=== PATIENT | male | born 1950 | race Caucasian/White ===

== ENCOUNTER → 2018-03-19 | Outpatient (CLI) | payer MEDICARE ==
[~2018-03-19] MED LIST: ALLO100T PO; ALLO300T2 PO; AMLO5TAB2 PO; ASCO500T PO; FLUT1INH INH; GEMF600T PO; GUAI1TAB PO; LEVO.1 PO; LEVO100T5 PO; LEVO150T7 PO; LOSA50TA PO; MEDI220T PO; MONT10TA4 PO; MUCI600T PO; NAPR220T95 PO; VITA1000 PO; VITA500C PO; VITATAB25 PO; ZOLP1TAB32 PO
[2018-03-19 09:05] LABS: PROTHROMBIN TIME - PATIENT 10.4 SEC (9.8-11.6)
[2018-03-19 09:20] LABS: AUTOMATED NEUTROPHIL # 5.8 TH/MM3 (1.8-7.7); BASOPHIL # 0.1 TH/MM3 (0-0.2); BASOPHIL % 1.2 % (0.0-2.0); EOSINOPHIL # 0.7 TH/MM3 (0-0.4); EOSINOPHIL % 8.2 % (0.0-4.0); HEMATOCRIT 45.5 % (39.0-51.0); HEMOGLOBIN 15.7 GM/DL (13.0-17.0); LYMPH % 12.2 % (9.0-44.0); MEAN CELL VOLUME 89.8 FL (80.0-100.0); MEAN CORPUSCULAR HEMOGLOBIN 30.9 PG (27.0-34.0); MEAN CORPUSCULAR HGB CONC 34.5 % (32.0-36.0); MEAN PLATELET VOLUME 9.8 FL (7.0-11.0); MONO % 7.3 % (0.0-8.0); MONOCYTE # 0.6 TH/MM3 (0-0.9); NEUT % 71.1 % (16.0-70.0); PLATELET COUNT 211 TH/MM3 (150-450); RED BLOOD COUNT 5.06 MIL/MM3 (4.50-5.90); RED CELL DISTRIBUTION WIDTH 14.2 % (11.6-17.2); WHITE BLOOD COUNT 8.1 TH/MM3 (4.0-11.0)
--- NOTE | 2018-03-19 10:16 | RADRPT ---
EXAM DATE: 03/19/2018 9:56 AM EDT AGE/SEX: 68 years / Male INDICATIONS: Evaluate for pneumonia, pneumothorax and communicable diseases. Pre-op lumbar laminecto my. CLINICAL DATA: This is the patient's initial encounter. Patient reports that signs and symptoms have been present for 1 day and indicates a pain score of 0/10. MEDICAL/SURGICAL HISTORY: None. None. COMPARISON: No prior exams available for comparison. FINDINGS: PA and lateral views of the chest demonstrate the lungs to be symmetrically aerated without evidence of mass, infiltrate or effusion. The cardiomediastinal contours are unremarkable. Osseous structures are intact. CONCLUSION: Negative for acute process Electronically signed by: Tyler Leach MD 03/19/2018 10:15 AM EDT
[2018-03-19 10:37] LABS: ALBUMIN 4.2 GM/DL (3.4-5.0); ALT (GPT) 28 U/L (12-78); AST (GOT) 17 U/L (15-37); BICARBONATE 25.8 MEQ/L (21.0-32.0); BLOOD UREA NITROGEN 25 MG/DL (7-18); CALCIUM 8.9 MG/DL (8.5-10.1); CHLORIDE 108 MEQ/L (98-107); GLOMERULAR FILTRATION RATE 46 ML/MIN (>89); GLUCOSE,FASTING 91 MG/DL (74-99); SODIUM (NA) 143 MEQ/L (136-145)
[2018-03-19 10:40] LABS: ALKALINE PHOSPHATASE 120 U/L (45-117); TOTAL BILIRUBIN ADULT 0.7 MG/DL (0.2-1.0); TOTAL PROTEIN 7.5 GM/DL (6.4-8.2)
[2018-03-19 11:01] LABS: BILIRUBIN, URINE NEG (NEG); BLOOD, URINE NEG (NEG); GLUCOSE,URINE NEG (NEG); KETONE, URINE NEG (NEG); MUCUS URINE FEW /lpf (OCC); NITRITE,URINE NEG (NEG); URINE COLOR YELLOW (YELLW/STRAW); URINE LEUKOCYTE ESTERASE NEG (NEG)
--- NOTE | 2018-03-19 20:11 | EKG ---
Date Performed: 03/19/2018 Time Performed: 08:49:32 PTAGE: 68 years EKG: Sinus rhythm WITH OCCASIONAL VENTRICULAR PREMATURE COMPLEXES BORDERLINE ECG Since the PREVIOUS TRACING , no significant change noted DOCTOR: Alejandro Fountain Interpretating Date/Time 03/19/2018 20:10:30
== END ==
LOC: CPRE 08:26
PROVIDERS: ATTEND Neurological Surgery
DX: Z01.812 Encounter for preprocedural laboratory examination (principal); Z01.810 Encounter for preprocedural cardiovascular examination; Z01.811 Encounter for preprocedural respiratory examination; M43.10 Spondylolisthesis, site unspecified; M51.36 Other intervertebral disc degeneration, lumbar region; R94.31 Abnormal electrocardiogram [ECG] [EKG]
CPT/HCPCS: 36415; 71046; 80053; 81001; 85025; 85610; 85730; 87640; 87641; 93005

== ENCOUNTER 2018-04-01 06:39 | Inpatient (IN) ==
[2018-04-01] MEDS ORDERED: Thrombin Topical Soln 5,000 UNIT Vial TOPICAL ONE (07:00)
[2018-04-01] MEDS ORDERED: Bupivacaine/Epinephrine 0.5% Inj 50 ML Vial ONE (07:00)
[2018-04-01] MEDS ORDERED: Gelatin Size 100 Topical Foam ONE (07:01)
[2018-04-01] MEDS ORDERED: Metoprolol Tartrate 25 MG Tablet PO SCH (07:15)
[2018-04-01] MEDS ORDERED: Chlorhexidine Gluconate 2% 1 Pack (2 Cloths) TOPICAL SCH (07:15)
[2018-04-01] MEDS ORDERED: Vancomycin Inj 1 GM/200 ML PIGGYBACK IV.SIG SCH (08:00)
[2018-04-01] MEDS ORDERED: Sodium Chlor 0.9% Inj 500 ML IV.SIG SCH (08:00)
[2018-04-01] MEDS: ceFAZolin 2 GM Premix Inj 2 GM/50 ML PIGGYBACK IV.SIG ONE ×2 (11:33→11:49)
[2018-04-01] MEDS ORDERED: Sodium Chlor 0.9% Inj 500 ML IV.SIG ONE (12:00)
[2018-04-01] MEDS ORDERED: Phenylephrine/NS 1000 MCG/10ML Syringe IV.PUSH ONE (12:00)
[2018-04-01] MEDS ORDERED: Lidocaine PF 1% Inj 5 ML Syringe INFILTRATN ONE (12:00)
[2018-04-01] MEDS ORDERED: ceFAZolin 2 GM Premix Inj 2 GM/50 ML PIGGYBACK IV.SIG ONE (13:13)
[2018-04-01 13:54] LABS: ABG Base Excess -3.3 mmol/L (-2-2); ABG PCO2 35 mmHg (38-42); ABG PO2 244 mmHG (61-120)
--- NOTE | 2018-04-01 14:20 | XR ---
EXAM DATE: 04/01/2018 2:16 PM EDT AGE/SEX: 68 years / Male INDICATIONS: Post-op L3-L4, L4-L5 posterior lumbar fusion. CLINICAL DATA: This is the patient's initial encounter. Patient reports that signs and symptoms have been present for 1 day and indicates a pain score of Nonresponsive. MEDICAL/SURGICAL HISTORY: Non-responsive. Non-responsive. COMPARISON: No prior exams available for comparison. FINDINGS: AP and lateral intraoperative images of the lower lumbar spine show bilateral transpedicular fixation with intervertebral disc prostheses from L3 through L5. Hardware appears to be intact. No significan t listhesis. CONCLUSION: Appropriate postoperative appearance of the lower lumbar spine with bilateral transpedicular fixation from L3 through L5. Electronically signed by: Az Ta MD 04/01/2018 2:19 PM EDT
[2018-04-01] MEDS ORDERED: fentaNYL Citrate Inj 100 MCG/2 ML Ampul ONE (14:26)
[2018-04-01] MEDS ORDERED: Morphine Inj 4 MG/ML Vial ONE (14:27)
[2018-04-01] MEDS ORDERED: Bisacodyl 10 MG Supp RECTAL PRN (14:57)
[2018-04-01] MEDS ORDERED: guaiFENesin 600 MG ER Tablet PO PRN (15:10)
[2018-04-01] MEDS ORDERED: Naloxone Inj 0.4 MG/ML Vial IV.PUSH PRN ×2 (15:35→16:50)
[2018-04-01 15:54] LABS: Baso # (Auto) 0.1 th/mm3 (0.0-0.2); Baso % (Auto) 0.2 % (0.0-2.0); Eos # (Auto) 0.2 th/mm3 (0.0-0.4); Eos % (Auto) 1.1 % (0.0-4.0); Hematocrit 39.8 % (39.0-51.0); Hemoglobin 13.5 gm/dL (13.0-17.0); Lymph # (Auto) 0.7 th/mm3 (1.0-4.8); Lymph % (Auto) 3.3 % (9.0-44.0); Mean Corpuscular HGB Conc 33.8 % (32.0-36.0); Mean Corpuscular Hemoglobin 30.1 pg (27.0-34.0); Mean Corpuscular Volume 88.9 fL (80.0-100.0); Mean Platelet Volume 9.8 fL (7.0-11.0); Mono # (Auto) 0.3 th/mm3 (0.0-0.9); Mono % (Auto) 1.6 % (0.0-8.0); Neut # (Auto) 19.9 th/mm3 (1.8-7.7); Neut % (Auto) 93.8 % (16.0-70.0); Platelet Count 201 th/mm3 (150-450); Red Blood Count 4.48 mil/mm3 (4.50-5.90); White Blood Count 21.3 th/mm3 (4.0-11.0)
[2018-04-01 16:08] LABS: Calcium 7.9 mg/dL (8.5-10.1); Carbon Dioxide 21.5 meq/L (21.0-32.0); Potassium 3.8 meq/L (3.5-5.1)
[2018-04-01] MEDS ORDERED: HYDROmorphone PCA Inj 6 MG/30 ML PCA.VIAL PCA PRN (17:00)
--- NOTE | 2018-04-01 17:54 | P.OP ---
Date of procedure: 04/01/18 Procedure: L3-4, L4-L5 laminectomy, interbody arthrodhesis using PEEK cage and autologous bone graft, L3-4, L4-L5 instrumental fixation using transpedicular screws and rods, L3-4, L4-L5 posterolateral fusion using autologous bone graft and demineralized bone matrix. Microsurgical dissection Anesthesia: ROCIO Surgeon: Chetan Bryant MD Casket Assembler Metal: Clementine Whatley Pathology: none sent Operation and Findings: INDICATIONS FOR THE SURGICAL PROCEDURE Mr veras is a 68 year-old male who presented with intractable mechanical back pain and charan evidence of L4 and L5 lower extremity radiculopathy. He has failed maximum nonsurgical management including multiple modalities of conservative treatment as well as pain management interventions by an interventional pain specialist. A surgical decompression and arthrodhesis were indicated as a last resort. The [id number] details of the procedure, indications, alternatives, risks and potential complications were fully discussed with the patient. The patient fully understood. All the questions were answered. No guarantees were given. He voiced requesting the procedure and provided informed consents. He was offered the alternative of delaying the procedure and continuing with nonsurgical management. DETAILS OF THE SURGICAL PROCEDURE Prior to the procedure, the procedure, risks, and potential complications revisited with the patient. Placement of electrodes for intraoperative neurophysiological monitoring was completed. The patient was taken to the operative room, and following induction of general anesthesia, endotracheal intubation was performed. A Starkey catheter, bilateral WADE hose and sequential compression devices were placed and kept throughout the procedure. The patient was positioned prone, over a Carlos Manuel table over a bolsters. All pressure in the preoperative surgical holding room points were carefully padded with eggcrate and gel mattress. The eyes were tapped shut after ointment was applied by the anesthesiologist to prevent corneal abrasion. A Hiral hugger was placed over the expossed lower body to maintain control of the core body temperature. The electrophysiological team placed the needles and electrodes in their proper location and baseline SSEP's and motor evoked potentials were registered. The entrance to each pedicles was marked using a C arm. The lumbar region was prepped and draped in the usual sterile fashion. The surgical procedure was performed in several steps as follow: SURGICAL APPROACH Once the patient was positioned, a localizing cross-table lateral and AP x-ray was performed with a C-arm. Two paramedian small incisions were outlined on the skin approximately 3cm from the midline. The skin incisions were made with a # 10 blade. Small bleeders were controlled with the cautery. The dissection was then carried out into deeper planes and through the thoracolumbar fascia with a Bovie. The intermuscular septum was identified and the muscles were blunted dissected along the septum. The facets and transverse process of L3-4, L4,5 were exposed and the proper anatomical landmarks were identidied. A microsurgical self-retaining retractor was placed on the incision, and a localizing lateralizing cross-table x-ray was performed with an instrument underneath a lamina of the lumbar spine. INSTRUMENTAL FIXATION At this point in the procedure, placement of bilateral transpedicular screws was necessary for stabilization of the spine. Initially, the entry point for the screw was selected anatomically at the junction of the facet, with the transverse process, and the pars interarticularis at L3-4, L4,5. This was iniciated with a Giamshetti needle, followed by the use of K wire. A tap was used to create the threads for the screws. Finally bilateral transpedicular screws were carefully placed bilaterally at L3, L4, and L5 under fluoroscopic visualization. An appropriate purchase was achieved with all screws. The position of each screw was assessed anatomically with an AP, lateral, oblique Xrays. An intraoperative scan view of the spine was then performed using the iso -centric c-arm. Each screw was then assessed electrophysiologically stimulating each screw with a nerve stimulator. SURGICAL DECOMPRESSION There was significant mass effect with compression of the neural structures. In order to relieve neural compression, it was necessary to perform a decompressive laminectomy, with decompression of the spinal canal and bilateral lateral recesses. Note that the scope of such decompression was significantly more extensive than the minimal exposure necessary to perform an interbody fusion, as there was extreme facet arthropathy with severe degeneration of the disk spaces and stenosis cause by the hyperthrophic joint facets. At this point of the procedure the operative microscope was draped in the usual sterile fashion and brought to the field. The rest of the surgical procedure was performed using microdissection technique with the exception of the closure. Under the operating microscope, a decompressive laminectomy was carried out at on the right side L3-4, L4,5 as follow: The laminae, base of the spinous processes and facets were carefully drilled exposing the ligamentum flavum. The facets were abnormal with severe spondylolisthesis and gross mechanical instability. A large disk protusion was compressing the neural structures and exiting nerve roots. A near complete facetectomy was necessary resulting in further mechanical instability. The ligamentum flavum appeared hypertrophic, resulting on mass effect on the dorsal surface of the neural structures. The superior free border of the ligamentum flavum was elevated with a ligament dissector and the ligamentum flavum was removed with a 3 and 4 mm Kerrison forceps. The ligament was very adherent to the dural sac and during the dissection, ans extreme care was taken during the dissection. The exiting nerve roots were identified, and a wide foraminotomy was performed with a Kerrison in their trajectory towards the neural foramen. Epidural veins located laterally to the dural sac were coagulated with the bipolar cautery, and then incised using microscissors. Gentle medial retraction of the dural sac allowed me to expose the disc space for the discectomy. Upon completion of the discectomy, an excellent decompression of the neural structures was achieved. INTERBODY ARTHRODHESIS In order to correct the narrowing of the disk space and maintain distraction of the space, and to achieve a solid interbody fusion, it was necessary the insertion of an interbody device into the disk space. Otherwise, the disk space would collapse, compromising the result of the surgical procedure. At this point of the procedure, the annulus fibrosus of the disk was carefully coagulated with a bipolar cautery and incised using an 11 bladed knife. Then, a microdiscectomy was carried out in a standard fashion using a combination of straight and up-biting pituitary forceps. A reverse angle curette was applied underneath the posterior longitudinal ligament, and used to push the disk fragments into the disk space, so they can be safely removed with a pituitary forceps. Once the discectomy was completed, it was necessary to decorticate the endplates, in order to eliminate the cartilaginous endplate and to expose healthy bone appropriate to perform the interbody fusion. The endplates at L3-4 , L4,5 were then thoroughly decorticated using increasing size bone mau and ring curets, eliminating the cartilaginous fragments from both, the superior and inferior endplates. A disk space distractor was applied to the pedicle screws and gentle distraction was applied. This maneuver was assisted by the use of a disk distractor. Increased motility was noted at the disk, which was consistent with instability due to facet arthropathy. Once a thorough preparation of the disk space was achieved, the disk space was irrigated with antibiotic solution, and the interbody fusion was performed by carefully impacting PPEK cages filled with autologous iliac crest bone graft. The use of several shoe impactors with different angulation, allowed me for an excellent, proper position of the interbody cages L3-4 and L4,5. A solid position of the cage with good purchase was achieved. The position of the cages were assessed anatomically with a probe and radiologically with the C-arm. POSTEROLATERAL FUSION The posterolateral fusion is a critical component to the procedure, to prevent future fatigue and failure of the instrumental fixation. Initially, the transverse processes of the vertebral bodies, lateral surface of the facets and the lateral gutters of the spine were carefully cleaned, eliminating all soft tissue and muscle attachments. The area was then irrigated with a large amount of antibiotic solution. Subsequently, the transverse processes, lateral surface of the facets, and lateral gutters of the spine were thoroughly decorticated using the TPS drill with a 5mm cutting stephie, exposing cancellous bone, in preparation for the posterolateral fusion. The incision was again irrigated with antibiotic solution. Then, the posterolateral fusion was then performed by carefully packing the lateral gutters of the spine at L3-4, L4,5 with autologous bone combined with demineralized bone matrix. I packed as much bone as possible. COMPLETION OF THE INSTRUMENTATION AND CLOSURE The rods were brought to the field, applied to all the screws, and the screw caps were sequentially applied. Compression was performed between the pedicle screws, and final tightening of the screws was completed using a torque wrench. The incision was again thoroughly irrigated with several liters of antibiotic solution, and hemostasis secured with the bipolar cautery. A Valsalva Maneuver performed by the anesthesiologist failed to show any evidence of cerebrospinal fluid leak or bleeding. A 7 mm Carlos Manuel-Connor drain was left in the epidural space and externalized through a separate stab incision. The incision was then closed in planes. 0 Vicryl was used in an interrupted fashion to close the thoracolumbar fascia and the superficial fascia. The subcutaneous tissue was then approximated using 3-0 Vicryl in an interrupted fashion. Special care was taken to avoid space. The skin was then closed with 4-0 Vicryl in a running, subcuticular fashion. Dermabond was applied to the skin. Each plane of closure was irrigated with antibiotic solution. At the end of the procedure the sponge, needle and instrument counts were all correct. Estimated blood loss was 350-400 cc. No blood transfusion was given. The entire procedure was performed using continuous electrophysiological monitoring of the somatosensorial evoked potentials and EMG. The patient received prophylactic antibiotics. The patient was then extubated and transferred to the recovery room in stable condition.
[2018-04-01] MEDS: Montelukast 10 MG Tablet PO SCH (22:17)
[2018-04-01] MEDS: Senna/Docusate Sodium 8.6/50 MG Tablet PO SCH (22:17)
[2018-04-01] MEDS: ceFAZolin 2 GM Premix Inj 2 GM/50 ML PIGGYBACK IV.SIG SCH (22:21)
[2018-04-01] MEDS: Sod Chloride 0.9% Inj 1,000 ML IV.SIG SCH (22:21)
[2018-04-02] MEDS: Levothyroxine 100 MCG Tablet PO SCH (05:29)
[2018-04-02] MEDS: ceFAZolin 2 GM Premix Inj 2 GM/50 ML PIGGYBACK IV.SIG SCH ×2 (05:29→13:00)
[2018-04-02] MEDS: Sod Chloride 0.9% Inj 1,000 ML IV.SIG SCH ×2 (06:09→14:49)
[2018-04-02 06:22] LABS: Baso % (Auto) 0.3 % (0.0-2.0); Eos # (Auto) 0.1 th/mm3 (0.0-0.4); Eos % (Auto) 1.1 % (0.0-4.0); Hematocrit 34.7 % (39.0-51.0); Hemoglobin 11.9 gm/dL (13.0-17.0); Lymph % (Auto) 8.1 % (9.0-44.0); Mean Corpuscular HGB Conc 34.3 % (32.0-36.0); Mean Corpuscular Hemoglobin 30.4 pg (27.0-34.0); Mean Corpuscular Volume 88.8 fL (80.0-100.0); Mean Platelet Volume 9.5 fL (7.0-11.0); Mono # (Auto) 0.9 th/mm3 (0.0-0.9); Mono % (Auto) 7.2 % (0.0-8.0); Neut # (Auto) 9.9 th/mm3 (1.8-7.7); Neut % (Auto) 83.3 % (16.0-70.0); Platelet Count 178 th/mm3 (150-450); Red Blood Count 3.91 mil/mm3 (4.50-5.90); Red Cell Distribution Width 13.7 % (11.6-17.2); White Blood Count 11.9 th/mm3 (4.0-11.0)
[2018-04-02 06:39] LABS: Calcium 7.9 mg/dL (8.5-10.1); Carbon Dioxide 25.7 meq/L (21.0-32.0); Potassium 3.6 meq/L (3.5-5.1)
[2018-04-02] MEDS: HYDROmorphone PCA Inj 6 MG/30 ML PCA.VIAL PCA PRN (08:39)
[2018-04-02] MEDS: Allopurinol 100 MG Tablet PO SCH (08:44)
[2018-04-02] MEDS: Senna/Docusate Sodium 8.6/50 MG Tablet PO SCH ×2 (08:44→21:53)
[2018-04-02] MEDS: Gemfibrozil 600 MG Tablet PO SCH ×3 (08:44→19:42)
[2018-04-02] MEDS: amLODIPine 5 MG Tablet PO SCH (08:45)
[2018-04-02] MEDS: Ascorbic Acid 500 MG Tablet PO SCH (08:45)
--- NOTE | 2018-04-02 10:28 | P.CON ---
History of Present Illness Service: [facility] Consult date: 04/01/18 Requesting Physician: Chetan Bryant Reason for Consult: Assist with Medical Management Primary Care Provider: Tyshawn Larkin MD Chief Complaint: Weakness History of Present Illness: Patient is a 68-year-old male with primary medical history of hypothyroidism, HTN, arthritis, back pain with radiculopathy, gout, renal insufficiency, HLD who came in for elective surgery with Dr. Bryant secondary to back pain with radiculopathy. Patient is status post L3-4, L4-L5 laminectomy, interbody arthrodhesis using PEEK cage and autologous bone graft, L3-4, L4-L5 instrumental fixation using transpedicular screws and rods, L3-4, L4-L5 posterolateral fusion using autologous bone graft and demineralized bone matrix. Microsurgical dissection 04/01/18. Reports he is doing okay except for feeling that he is going to have a gout flareup on his left foot. He forgets if he took his allopurinol this morning. As per nursing allopurinol has been giving. Discussed with patient will restart all his medications from home. All his previous surgeries and medical histories provided. States he feels pain RLE due to sciatica. Denies SOB/ dyspnea. Denies chest pain, palpitations , headaches, dizziness. Denies fevers, chills, n/v/d. Denies dysuria. Review of Systems All other systems reviewed negative except as stated in [facility] - History History Provided By: Patient - Medical History Medical History: Medical History (Last Updated 04/02/18 @ 10:20 by JOSEP Dutton) H/O thyroidectomy (Acute) Anemia Arthritis Asthma Back pain COPD (chronic obstructive pulmonary disease) Cataract GERD (gastroesophageal reflux disease) Gout High cholesterol Hypertension Hypothyroidism Myocardial infarction Neck pain Osteoporosis Prostate cancer Radiation exposure Renal disease Scoliosis Sleep apnea Thyroid cancer Zffzc-Lfhiwvjyw-Vesxu (WPW) syndrome - Surgical History Surgical History: Surgical History (Last Reviewed 03/19/18 @ 09:20 by Blessing Mendez RN) History of cholecystectomy History of total right knee replacement - Tobacco History Second Hand Smoke Exposure: No Smoking Status: Never smoker - Alcohol History How Often Do You Have a Drink Containing Alcohol: Monthly or less - Substance Use History Substance History: No History of Abuse - Travel History Recent Travel in the [facility] Within the Last 8 Weeks: No Recent Travel Out of the Country Within the Last 8 Weeks: No Medications and Allergies Active Medications: Active Medications Hydrocodone Bitart/Acetaminophen ([place] 10/325) 1 tab PO Q4H PRN PRN Reason: Pain Scale 1 To 5 Al Hydroxide/Mg Hydroxide (Milk Of Mor Arguetaq) 30 ml PO Q12H PRN PRN Reason: Mild Constipation Albuterol (Albuterol Neb (Prn)) 2.5 mg NEB Q4HR NEB PRN PRN Reason: WHEEZING Allopurinol (Zyloprim) 200 mg PO DAILY [facility] Last Admin: 04/02/18 08:44 Dose: 200 mg Amlodipine Besylate (Norvasc) 5 mg PO DAILY [facility] Last Admin: 04/02/18 08:45 Dose: 5 mg Ascorbic Acid (Vitamin C) 500 mg PO DAILY [facility] Last Admin: 04/02/18 08:45 Dose: 500 mg Bisacodyl (Dulcolax Supp) 10 mg RECTAL DAILY PRN PRN Reason: SEVERE CONSITIPATION Chlorhexidine Gluconate (Chlorhexidine 2% Cloth) 3 pack [employer] EXECUTIVE DIRECTOR [facility] Stop: 04/04/18 07:07 Last Admin: 04/01/18 06:45 Dose: 3 pack Clonidine HCl (Catapres) 0.1 mg PO Q6H PRN PRN Reason: SYS BP GREATER THAN 170 MMHG Cyclobenzaprine HCl (Flexeril) 10 mg PO Q8H PRN PRN Reason: MUSCLE SPASM Gemfibrozil (Lopid) 600 mg PO BIDAC [facility] Last Admin: 04/02/18 08:46 Dose: 600 mg Guaifenesin (Mucinex Er) 600 mg PO Q12H PRN PRN Reason: COUGH Lactated Ringer's (Lr 1000 Ml Inj) 1,000 mls @ 30 mls/hr IV.SIG .Q24H [facility] Stop: 04/04/18 07:07 Last Admin: 04/02/18 08:46 Dose: Not Given Sodium Chloride (Ns Inj) 500 mls @ 30 mls/hr IV.SIG .Q10H [facility] Stop: 04/04/18 07:07 Vancomycin/Sodium Chloride (Vancomycin Inj) 1 gm in 200 mls @ 200 mls/hr IV.SIG [employer] EXECUTIVE DIRECTOR [facility] Stop: 04/04/18 07:38 Cefazolin Sodium/Dextrose (Ancef 2 Gm Premix Inj) 2 gm in 50 mls @ 100 mls/hr IV.SIG Q8H [facility] Stop: 04/02/18 13:29 Last Admin: 04/02/18 05:29 Dose: 100 mls/hr Sodium Chloride (Ns Inj) 1,000 mls @ 100 mls/hr IV.SIG .Q10H [facility] Last Admin: 04/02/18 06:09 Dose: 100 mls/hr Hydromorphone/Sodium Chloride (Dilaudid Parks Recreation Director Inj) 6 mg in 30 mls @ 0 mls/hr IRRIGATION PUMP INSTALLER UNSCH PRN PRN Reason: per IRRIGATION PUMP INSTALLER parameters Last Admin: 04/02/18 08:39 Dose: 0 mls/hr Lactulose (Lactulose Liq) 30 ml PO DAILY PRN PRN Reason: SEVERE CONSITIPATION Levothyroxine Sodium (Synthroid) 150 mcg PO [place]@0600 [facility] Levothyroxine Sodium (Synthroid) 100 mcg PO MoTuWeThFrSa@0600 [facility] Last Admin: 04/02/18 05:29 Dose: 100 mcg Losartan Potassium (Cozaar) 50 mg PO DAILY [facility] Last Admin: 04/02/18 08:44 Dose: 50 mg Metoprolol Tartrate (Lopressor) 25 mg PO [employer] EXECUTIVE DIRECTOR [facility] Stop: 04/04/18 07:07 Miscellaneous Information (Mis Nursing Information) 1 each OTHER UNSCH PRN PRN Reason: SEE LABEL COMMENTS Stop: 04/02/18 14:55 Montelukast Sodium (Singulair) 10 mg PO QPM [facility] Last Admin: 04/01/18 22:17 Dose: 10 mg Naloxone HCl (Narcan Inj) 0.4 mg IV.PUSH PRN PRN PRN Reason: SEE LABEL COMMENTS Ondansetron HCl (Zofran Odt) 4 mg PO Q6H PRN PRN Reason: NAUSEA OR VOMITING Pantoprazole Sodium (Protonix) 40 mg PO DAILY [facility] Last Admin: 04/02/18 08:44 Dose: 40 mg Povidone Iodine (Betadine 5% Antisepsis Kit) 1 applicatio EACH [employer] EXECUTIVE DIRECTOR [facility] Stop: 04/04/18 07:07 Last Admin: 04/01/18 08:25 Dose: 1 applicatio Senna/Docusate Sodium (Barbi-Colace) 1 tab PO BID [facility] Last Admin: 04/02/18 08:44 Dose: 1 tab Sennosides (Senokot) 17.2 mg PO Q12H PRN PRN Reason: Moderate Constipation Sodium Chloride (Ns Flush) 2 ml IV.FLUSH UNSCH PRN PRN Reason: FLUSH AFTER USING IV ACCESS Vitamin D (Vitamin D3) 1,000 unit PO DAILY [facility] Last Admin: 04/02/18 08:44 Dose: 1,000 unit Allergies Allergy/AdvReac Type Severity Reaction Status Date / Time latex Allergy Mild Rash Verified 04/01/18 08:04 digoxin AdvReac Unknown PT HAS Verified 04/01/18 08:04 BOWLING PARKINSON WHITE SYNDROME Home Medications Medication Instructions Recorded Confirmed Type allopurinol 200 mg PO DAILY 03/19/18 04/01/18 History amlodipine 5 mg PO DAILY 03/19/18 04/01/18 History ascorbic acid (vitamin C) 500 mg PO DAILY 03/19/18 History cholecalciferol (vitamin D3) 1,000 unit PO DAILY 03/19/18 04/01/18 History gemfibrozil 600 mg PO BIDAC 03/19/18 04/01/18 History guaifenesin 600 mg PO Q12H PRN 03/19/18 History levothyroxine 100 mcg PO MOTUWETHFRSA 03/19/18 04/01/18 History levothyroxine 150 mcg PO [place] 03/19/18 04/01/18 History montelukast 10 mg PO QPM 03/19/18 History naproxen sodium 220 mg PO Q12H PRN 03/19/18 04/01/18 History losartan 50 mg PO DAILY 04/01/18 04/01/18 History Physical Exam Vital signs: Vital Signs 04/01/18 14:20 04/01/18 14:45 04/01/18 15:00 Temperature 98.3 F Pulse Rate 77 81 73 Respiratory Rate 14 14 14 Blood Pressure 125/61 154/74 H 150/70 H Pulse Oximetry 99 98 95 04/01/18 15:15 04/01/18 15:30 04/01/18 15:45 Temperature Pulse Rate 75 77 73 Respiratory Rate 18 17 17 Blood Pressure 152/74 H 148/73 H 142/70 H Pulse Oximetry 95 94 L 97 04/01/18 16:15 04/01/18 16:45 04/01/18 17:42 Temperature 97.6 F 98.6 F Pulse Rate 73 72 71 Respiratory Rate 18 16 18 Blood Pressure 144/77 H 148/78 H 163/77 H Pulse Oximetry 97 97 99 04/01/18 20:45 04/02/18 00:00 04/02/18 04:50 Temperature 98.8 F 98.1 F 98 F Pulse Rate 69 65 68 Respiratory Rate 21 20 18 Blood Pressure 149/68 H 135/67 129/69 Pulse Oximetry 99 99 99 04/02/18 08:07 Temperature 98.6 F Pulse Rate 84 Respiratory Rate 16 Blood Pressure 155/71 H Pulse Oximetry 98 Intake & Output 04/01/18 04/02/18 04/02/18 18:59 06:59 18:59 Intake Total 2650 / 2650 2930 / 2930 50 / 50 Output Total 700 / 700 850 / 850 Balance 1949 / 1949 2079 / 2079 50 / 50 Weight 87.1 kg 87 kg Intake: IV 50 / 50 50 / 50 50 / 50 Ancef 2 GM Premix Inj 2 gm In 50 / 50 50 / 50 50 ml @ 100 mls/hr IV.SIG Q8H [place] Rx#:[id number] Oral 1880 / 1880 Anesthesia Amount 2600 / 2600 Other 1000 / 1000 Output: Estimated Blood Loss 400 / 400 Urine Amount (Catheter) 300 / 300 750 / 750 Indwelling Urethral Catheter 300 / 300 750 / 750 Wound Drainage 100 / 100 # 1 Lower Back 100 / 100 Other: Other Intake Source Saline Solution # Bowel Movements 0 Weight On Admission 87.1 kg Narrative: GENERAL: This is a well-nourished, well-developed patient, in no apparent distress. SKIN: Warm and dry. HEENT: Normocephalic. Pupils equal round and reactive. Nose without bleeding. Airway patent. NECK: Trachea midline. CARDIOVASCULAR: Regular rate and rhythm without murmurs, gallops, or rubs. RESPIRATORY: Clear to auscultation. Breath sounds equal bilaterally. No wheezes , rales, or rhonchi. GASTROINTESTINAL: Abdomen soft, non-tender, nondistended. Bowel Sounds normoactive x4. MUSCULOSKELETAL: Extremities without clubbing, cyanosis, or edema. NEUROLOGICAL: Awake and alert. No focal neuro deficit. Moves all extremities, RLE weak planta and dorsi flexion. Normal speech. - Urinary Catheter Management Indwelling Urethral Catheter Cath placed during this visit: yes Reason for continuing: Other continuation reason Insertion date: 04/01/18 Insertion time: 09:20 Assessment and Plan - Assessment (1) S/P laminectomy Code(s): Z98.890 - Other specified postprocedural states Status: Acute - Plan Patient is a 68-year-old male with primary medical history of hypothyroidism, HTN, arthritis, back pain with radiculopathy, gout, renal insufficiency, HLD who came in for elective surgery with Dr. Bryant secondary to back pain with radiculopathy. Status post laminectomy L3-L4, L4-L5 by Dr. Bryant Hx back pain with radiculopathy, failed conservative treatment -Pain management with bowel regimen -PT eval and treat HTN HLD Hx Guy Parkinson -Continue amlodipine, losartan -Continue gemfibrozil -Monitor trend CKD ST 3 -Avoid nephrotoxins -Monitor renal indicis Hypothyroidism -Continue home Synthroid Gout -Continue allopurinol COPD not in exacerbation -Duo nebs as needed DVT prop SCDs, teds Code Status: Full Code Discussed Condition With: Patient, nursing Discharge Planning: DC home when cleared by attending physician
--- NOTE | 2018-04-02 16:20 | P.PNNS ---
Subjective Interval history: 04/02: POD 1 L3-4, L4-L5 laminectomy, interbody arthrodhesis using PEEK cage and autologous bone graft, L3-4, L4-L5 instrumental fixation using transpedicular screws and rods, L3-4, L4-L5 posterolateral fusion using autologous bone graft and demineralized bone matrix. Microsurgical dissection pt doing well surgical pain controlled with CARE COORDINATION MANAGER, increased pain with movement. reports radicular pain feels better. no new neurological complaints. Physical Exam Vital signs: Vital Signs 04/01/18 16:45 04/01/18 17:42 04/01/18 20:45 Temperature 97.6 F 98.6 F 98.8 F Pulse Rate 72 71 69 Respiratory Rate 16 18 21 Blood Pressure 148/78 H 163/77 H 149/68 H Pulse Oximetry 97 99 99 04/02/18 00:00 04/02/18 04:50 04/02/18 08:07 Temperature 98.1 F 98 F 98.6 F Pulse Rate 65 68 84 Respiratory Rate 20 18 16 Blood Pressure 135/67 129/69 155/71 H Pulse Oximetry 99 99 98 04/02/18 12:00 04/02/18 16:11 Temperature 99.8 F H Pulse Rate 84 Respiratory Rate 18 18 Blood Pressure 125/61 118/59 L Pulse Oximetry 95 Intake & Output 04/01/18 04/02/18 04/02/18 18:59 06:59 18:59 Intake Total 2650 / 2650 2930 / 2930 580 / 580 Output Total 700 / 700 850 / 850 1000 / 1000 Balance 1950 / 1950 2080 / 2080 -420 / -420 Weight 87.1 kg 87 kg Intake: IV 50 / 50 50 / 50 100 / 100 Ancef 2 GM Premix Inj 2 gm In 50 / 50 50 / 50 50 / 50 50 ml @ 100 mls/hr IV.SIG Q8H [place] Rx#:[id number] Oral 1880 / 1880 480 / 480 Anesthesia Amount 2600 / 2600 Other 1000 / 1000 Output: Urine 1000 / 1000 Estimated Blood Loss 400 / 400 Urine Amount (Catheter) 300 / 300 750 / 750 Indwelling Urethral Catheter 300 / 300 750 / 750 Wound Drainage 100 / 100 # 1 Lower Back 100 / 100 Other: Other Intake Source Saline Solution # Bowel Movements 0 Weight On Admission 87.1 kg - Constitutional no acute distress - Routine HEENT Exam Head: Present: normocephalic Eye: Present: EOMI, PERRL - Routine Neck Exam Present: supple - Routine Neurological Exam Present: alert, oriented X3 - Routine Psychiatric Exam Present: normal affect - Urinary Catheter Management Indwelling Urethral Catheter Cath placed during this visit: yes, but has since been removed by the nurse Reason for continuing: Continue criteria not met Insertion date: 04/01/18 Insertion time: 09:20 Removal date: 04/02/18 Removal time: 13:00 Assessment and Plan - Assessment (1) S/P lumbar fusion Code(s): Z98.1 - Arthrodesis status Status: Acute - Plan cont post-op pain control with CARE COORDINATION MANAGER, TLSO when out of bed, Physical Therapy Protonix for gi prophylaxis SCDs and TEDs for dvt prophylaxis appreciate medical assistance anticipate discharge in 1-2 days when pain controlled
--- NOTE | 2018-04-02 16:22 | P.DCO ---
- Physical Therapy Order: Improve ambulation - Home Health Nursing Order: Medical education, Signs/symptoms of disease process, Medication education-adverse effect, Wound care and dressing changes (see discharge wound care orders), Nursing assessment with vital signs - Certification I have seen patient Austin Mathis on 04/02/18. My clinical findings support the need for the requested home health care services because: Deconditioned with increased weakness, High risk of falls I certify that my clinical findings support that this patient is homebound because: Post-op weakness
[2018-04-02] MEDS: Montelukast 10 MG Tablet PO SCH (19:41)
[2018-04-03] MEDS: Sod Chloride 0.9% Inj 1,000 ML IV.SIG SCH ×3 (00:38→08:05)
[2018-04-03] MEDS: HYDROmorphone PCA Inj 6 MG/30 ML PCA.VIAL PCA PRN (07:59)
[2018-04-03] MEDS: Gemfibrozil 600 MG Tablet PO SCH ×2 (08:02→16:03)
[2018-04-03] MEDS: Senna/Docusate Sodium 8.6/50 MG Tablet PO SCH (08:03)
[2018-04-03] MEDS: Ascorbic Acid 500 MG Tablet PO SCH (08:03)
[2018-04-03] MEDS: Allopurinol 100 MG Tablet PO SCH (08:04)
[2018-04-03] MEDS: amLODIPine 5 MG Tablet PO SCH (08:05)
--- NOTE | 2018-04-03 09:23 | P.PN ---
Subjective Interval history: Follow-up visit gout, HTN, HLD, status post L3-L4, L4-L5 laminectomy. Patient seen and examined today. Reports he is doing well. States that he has muscle tightness on the right side, feeling of sciatica, states he is unable to lay on his side due to this. Otherwise, denies fevers, chills, nausea, vomiting. Denies chest pain, palpitations, shortness of breath or dyspnea. Denies dysuria. Physical Exam Vital signs: Vital Signs 04/02/18 12:00 04/02/18 16:11 04/02/18 20:00 Temperature 99.8 F H 100.2 F H Pulse Rate 84 103 H Respiratory Rate 18 18 18 Blood Pressure 125/61 118/59 L 100/56 L Pulse Oximetry 95 95 04/02/18 21:53 04/03/18 00:00 04/03/18 02:39 Temperature 98.6 F Pulse Rate 87 Respiratory Rate 20 18 16 Blood Pressure 130/57 L Pulse Oximetry 95 04/03/18 04:00 04/03/18 05:56 04/03/18 08:13 Temperature 98.8 F 98.2 F Pulse Rate 79 92 H Respiratory Rate 18 16 16 Blood Pressure 144/65 H 168/78 H Pulse Oximetry 94 L 94 L Intake & Output 04/02/18 04/03/18 04/03/18 18:59 06:59 18:59 Intake Total 1580 / 1580 1000 / 1000 Output Total 1000 / 1000 725 / 725 90 / 90 Balance 580 / 580 -725 / -725 910 / 910 Weight 91.5 kg Intake: IV 1100 / 1100 1000 / 1000 NS Inj 1,000 ML @ 100 mls/hr IV 1000 / 1000 1000 / 1000 .SIG .Q10H [place] Rx#:[id number] Ancef 2 GM Premix Inj 2 gm In 50 / 50 50 ml @ 100 mls/hr IV.SIG Q8H [place] Rx#:[id number] Oral 480 / 480 Output: Urine 1000 / 1000 725 / 725 Wound Drainage 90 / 90 # 1 Lower Back 90 / 90 Other: # Voids 2 Narrative: GENERAL: This is a well-nourished, well-developed patient, in no apparent distress. SKIN: Warm and dry. HEENT: Normocephalic. Pupils equal round and reactive. Nose without bleeding. Airway patent. NECK: Trachea midline. CARDIOVASCULAR: Regular rate and rhythm without murmurs, gallops, or rubs. RESPIRATORY: Clear to auscultation. Breath sounds equal bilaterally. No wheezes , rales, or rhonchi. GASTROINTESTINAL: Abdomen soft, non-tender, nondistended. Bowel Sounds normoactive x4. MUSCULOSKELETAL: Extremities without clubbing, cyanosis, or edema. NEUROLOGICAL: Awake and alert. No focal neuro deficit. Moves all extremities, RLE weak plantar and dorsi flexion, improved. Normal speech. - Urinary Catheter Management Indwelling Urethral Catheter Cath placed during this visit: yes, but has since been removed by the nurse Reason for continuing: Continue criteria not met Insertion date: 04/01/18 Insertion time: 09:20 Removal date: 04/02/18 Removal time: 13:00 Results - Labs CBC & Chem 7: 04/03/18 08:48 04/02/18 05:58 - Procedures Status post laminectomy L3-L4, L4-L5 by Dr. Bryant Assessment and Plan - Assessment (1) S/P laminectomy Code(s): Z98.890 - Other specified postprocedural states Status: Acute - Plan Patient is a 68-year-old male with primary medical history of hypothyroidism, HTN, arthritis, back pain with radiculopathy, gout, renal insufficiency, HLD who came in for elective surgery with Dr. Bryant secondary to back pain with radiculopathy. Status post laminectomy L3-L4, L4-L5 by Dr. Bryant Hx back pain with radiculopathy, failed conservative treatment -Pain management with bowel regimen -PT eval and treat -Flexeril for sciatica pain HTN HLD Hx Guy Parkinson -Continue amlodipine, losartan -Continue gemfibrozil -Monitor trend CKD ST 3 -Avoid nephrotoxins -Monitor renal indicis Hypothyroidism -Continue home Synthroid Gout -Continue allopurinol COPD not in exacerbation -Duo nebs as needed DVT prop SCDs, teds Discharge Planning: DC home when cleared by attending physician
[2018-04-03 10:25] LABS: Baso # (Auto) 0.1 th/mm3 (0.0-0.2); Baso % (Auto) 0.4 % (0.0-2.0); Eos # (Auto) 0.7 th/mm3 (0.0-0.4); Eos % (Auto) 5.7 % (0.0-4.0); Hematocrit 31.8 % (39.0-51.0); Lymph # (Auto) 0.6 th/mm3 (1.0-4.8); Lymph % (Auto) 5.4 % (9.0-44.0); Mean Corpuscular HGB Conc 34.5 % (32.0-36.0); Mean Corpuscular Hemoglobin 30.6 pg (27.0-34.0); Mean Corpuscular Volume 88.7 fL (80.0-100.0); Mono # (Auto) 0.8 th/mm3 (0.0-0.9); Mono % (Auto) 6.9 % (0.0-8.0); Neut # (Auto) 9.8 th/mm3 (1.8-7.7); Neut % (Auto) 81.6 % (16.0-70.0); Platelet Count 139 th/mm3 (150-450); Red Blood Count 3.58 mil/mm3 (4.50-5.90); Red Cell Distribution Width 13.8 % (11.6-17.2)
[2018-04-03 10:55] LABS: Calcium 7.9 mg/dL (8.5-10.1); Carbon Dioxide 24.4 meq/L (21.0-32.0); Potassium 3.6 meq/L (3.5-5.1)
--- NOTE | 2018-04-03 14:03 | P.PNNS ---
Subjective Interval history: 04/03: reports of moderate lumbar pain and right sciatica pain today. feels not ready for discharge home. Physical Exam Vital signs: Vital Signs 04/02/18 16:11 04/02/18 20:00 04/02/18 21:53 Temperature 100.2 F H Pulse Rate 103 H Respiratory Rate 18 18 20 Blood Pressure 118/59 L 100/56 L Pulse Oximetry 95 95 04/03/18 00:00 04/03/18 02:39 04/03/18 04:00 Temperature 98.6 F 98.8 F Pulse Rate 87 79 Respiratory Rate 18 16 18 Blood Pressure 130/57 L 144/65 H Pulse Oximetry 95 94 L 04/03/18 05:56 04/03/18 08:13 04/03/18 09:45 Temperature 98.2 F Pulse Rate 92 H Respiratory Rate 16 16 16 Blood Pressure 168/78 H Pulse Oximetry 94 L 04/03/18 09:46 04/03/18 10:43 Temperature Pulse Rate Respiratory Rate 16 16 Blood Pressure Pulse Oximetry Intake & Output 04/02/18 04/03/18 04/03/18 18:59 06:59 18:59 Intake Total 1580 / 1580 1000 / 1000 Output Total 1000 / 1000 725 / 725 90 / 90 Balance 580 / 580 -725 / -725 910 / 910 Weight 91.5 kg Intake: IV 1100 / 1100 1000 / 1000 NS Inj 1,000 ML @ 100 mls/hr IV 1000 / 1000 1000 / 1000 .SIG .Q10H [place] Rx#:[id number] Ancef 2 GM Premix Inj 2 gm In 50 / 50 50 ml @ 100 mls/hr IV.SIG Q8H [place] Rx#:[id number] Oral 480 / 480 Output: Urine 1000 / 1000 725 / 725 Wound Drainage 90 / 90 # 1 Lower Back 90 / 90 Other: # Voids 2 Narrative: GENERAL: Sitting up in chair with TLSO brace, No acute distress SKIN: Warm and dry. HEAD: Normocephalic. EYES: No scleral icterus. No injection or drainage. NECK: Supple, trachea midline. MUSCULOSKELETAL: No cyanosis, or edema. Moves major muscle groups of LE's well b /l. BACK: ANDRE drain with 90 cc output overnight. - Urinary Catheter Management Indwelling Urethral Catheter Cath placed during this visit: yes, but has since been removed by the nurse Reason for continuing: Continue criteria not met Insertion date: 04/01/18 Insertion time: 09:20 Removal date: 04/02/18 Removal time: 13:00 Assessment and Plan - Assessment (1) S/P lumbar fusion Code(s): Z98.1 - Arthrodesis status Status: Acute - Plan cont post-op pain control with RESTAURANT WORKER, + oral pain medications prn, TLSO when out of bed, Physical Therapy Protonix for gi prophylaxis SCDs and TEDs for dvt prophylaxis appreciate medical assistance cont ANDRE draining today, to dc tomorrow
[2018-04-03] MEDS: Montelukast 10 MG Tablet PO SCH (18:17)
[2018-04-04] MEDS: Senna/Docusate Sodium 8.6/50 MG Tablet PO SCH ×3 (00:45→20:44)
[2018-04-04] MEDS: Levothyroxine 100 MCG Tablet PO SCH (05:45)
[2018-04-04] MEDS: Sod Chloride 0.9% Inj 1,000 ML IV.SIG SCH ×3 (05:52→15:24)
[2018-04-04] MEDS: Gemfibrozil 600 MG Tablet PO SCH ×2 (09:14→17:12)
[2018-04-04] MEDS: Allopurinol 100 MG Tablet PO SCH (09:15)
[2018-04-04] MEDS: Ascorbic Acid 500 MG Tablet PO SCH (09:15)
[2018-04-04] MEDS: amLODIPine 5 MG Tablet PO SCH (09:15)
[2018-04-04] MEDS: HYDROmorphone PCA Inj 6 MG/30 ML PCA.VIAL PCA PRN (11:07)
--- NOTE | 2018-04-04 12:54 | P.PNIM ---
Subjective Interval history: The patient was sitting in a chair. He said his pain was controlled. He worked with physical therapy earlier. He thought that he could go to rehab prior to going home. Discussed with his family at the bedside. The patient has not had a bowel movement in several days. Physical Exam Vital signs: Vital Signs 04/03/18 16:00 04/03/18 16:02 04/03/18 16:03 Temperature 98.2 F Pulse Rate 93 H Respiratory Rate 16 16 18 Blood Pressure 143/70 H Pulse Oximetry 97 04/03/18 16:04 04/03/18 18:13 04/03/18 20:00 Temperature 99.3 F Pulse Rate 94 H Respiratory Rate 16 18 19 Blood Pressure 165/74 H Pulse Oximetry 04/04/18 00:00 04/04/18 00:19 04/04/18 04:00 Temperature 97.9 F 97.5 F L Pulse Rate 91 H 90 Respiratory Rate 18 19 20 Blood Pressure 156/71 H 182/82 H Pulse Oximetry 95 98 04/04/18 05:44 04/04/18 05:53 04/04/18 08:00 Temperature 98.1 F Pulse Rate 84 Respiratory Rate 19 19 18 Blood Pressure 189/83 H Pulse Oximetry 96 04/04/18 11:51 04/04/18 12:00 Temperature 100.0 F H Pulse Rate 105 H Respiratory Rate 16 17 Blood Pressure 127/65 Pulse Oximetry 95 Intake & Output 04/03/18 04/04/18 04/04/18 18:59 06:59 18:59 Intake Total 1999 Output Total 790 / 790 890 / 890 Balance 1210 / 1210 -890 / -890 Weight 87.2 kg Intake: IV 1999 NS Inj 1,000 ML @ 100 mls/hr IV 1999 .SIG .Q10H [place] Rx#:[id number] Output: Urine 700 / 700 800 / 800 Wound Drainage # 1 Lower Back Narrative: GENERAL: This is a well-nourished, well-developed patient, in no apparent distress. SKIN: Warm and dry. HEENT: Normocephalic. Pupils equal round and reactive. Nose without bleeding. Airway patent. NECK: Trachea midline. CARDIOVASCULAR: Regular rate and rhythm without murmurs, gallops, or rubs. RESPIRATORY: Clear to auscultation. Breath sounds equal bilaterally. No wheezes , rales, or rhonchi. GASTROINTESTINAL: Abdomen soft, non-tender, nondistended. Bowel Sounds normoactive x4. MUSCULOSKELETAL: Brace in place. Extremities without clubbing, cyanosis, or edema. NEUROLOGICAL: Awake and alert. No focal neuro deficit. Moves all extremities, RLE weak plantar and dorsi flexion, improved. Normal speech. - Urinary Catheter Management Indwelling Urethral Catheter Cath placed during this visit: yes, but has since been removed by the nurse Reason for continuing: Continue criteria not met Insertion date: 04/01/18 Insertion time: 09:20 Removal date: 04/02/18 Removal time: 13:00 Results - Labs CBC & Chem 7: 04/03/18 08:48 04/03/18 08:48 - Procedures Status post laminectomy L3-L4, L4-L5 by Dr. Bryant Assessment and Plan - Assessment (1) S/P laminectomy Code(s): Z98.890 - Other specified postprocedural states Status: Acute - Plan Patient is a 68-year-old male with primary medical history of hypothyroidism, HTN, arthritis, back pain with radiculopathy, gout, renal insufficiency, HLD who came in for elective surgery with Dr. Bryant secondary to back pain with radiculopathy. Status post laminectomy L3-L4, L4-L5 by Dr. Bryant Hx back pain with radiculopathy, failed conservative treatment -Pain management with bowel regimen. Add Miralax. -PT eval and treat. -Flexeril for sciatica pain. Leukocytosis/ thrombocytopenia/ Low grade fevers - follow CBC with diff in AM. - mendoza-culture if spikes fever. HTN HLD Hx Guy Parkinson -Continue amlodipine, losartan -Continue gemfibrozil -Monitor trend CKD ST 3 -Avoid nephrotoxins -Monitor renal indicis Hypothyroidism -Continue home Synthroid Gout -Continue allopurinol COPD not in exacerbation -Duo nebs as needed DVT prop SCDs, teds
[2018-04-04] MEDS ORDERED: Polyethylene Glycol 3350 17 GM Packet PO ONE (13:15)
--- NOTE | 2018-04-04 14:42 | P.PNNS ---
Subjective Interval history: 04/04: doing well, sitting up edge of bed with PT. still quite painful. c/o of pain right leg and swelling behind the right knee. concerned regarding blood clots in leg. Physical Exam Vital signs: Vital Signs 04/03/18 16:00 04/03/18 16:02 04/03/18 16:03 Temperature 98.2 F Pulse Rate 93 H Respiratory Rate 16 16 18 Blood Pressure 143/70 H Pulse Oximetry 97 04/03/18 16:04 04/03/18 18:13 04/03/18 20:00 Temperature 99.3 F Pulse Rate 94 H Respiratory Rate 16 18 19 Blood Pressure 165/74 H Pulse Oximetry 04/04/18 00:00 04/04/18 00:19 04/04/18 04:00 Temperature 97.9 F 97.5 F L Pulse Rate 91 H 90 Respiratory Rate 18 19 20 Blood Pressure 156/71 H 182/82 H Pulse Oximetry 95 98 04/04/18 05:44 04/04/18 05:53 04/04/18 08:00 Temperature 98.1 F Pulse Rate 84 Respiratory Rate 19 19 18 Blood Pressure 189/83 H Pulse Oximetry 96 04/04/18 11:51 04/04/18 12:00 Temperature 100.0 F H Pulse Rate 105 H Respiratory Rate 16 17 Blood Pressure 127/65 Pulse Oximetry 95 Intake & Output 04/03/18 04/04/18 04/04/18 18:59 06:59 18:59 Intake Total 1999 Output Total 790 / 790 890 / 890 Balance 1210 / 1210 -890 / -890 Weight 87.2 kg Intake: IV 1999 NS Inj 1,000 ML @ 100 mls/hr IV 1999 .SIG .Q10H [place] Rx#:[id number] Output: Urine 700 / 700 800 / 800 Wound Drainage 90 / 90 90 / 90 # 1 Lower Back / - Urinary Catheter Management Indwelling Urethral Catheter Cath placed during this visit: yes, but has since been removed by the nurse Reason for continuing: Continue criteria not met Insertion date: 04/01/18 Insertion time: 09:20 Removal date: 04/02/18 Removal time: 13:00 Assessment and Plan - Assessment (1) S/P lumbar fusion Code(s): Z98.1 - Arthrodesis status Status: Acute - Plan ASSEMBLY HAND dc'ed, cont oral pain meds prn TLSO when out of bed, Physical Therapy Protonix for gi prophylaxis SCDs and TEDs for dvt prophylaxis appreciate medical assistance dc ANDRE drain today doppler right lower ext to assess for dvt case mgt for dc planning to rehab/SNF today
--- NOTE | 2018-04-04 14:59 | P.DS ---
Date of admission: 04/01/18 14:57 Primary care physician: Tyshawn Larkin MD Brief History from admission: Mr Mathis is a 68 year-old male who presented with intractable mechanical back pain and charan evidence of L4 and L5 lower extremity radiculopathy. He has failed maximum nonsurgical management including multiple modalities of conservative treatment as well as pain management interventions by an interventional pain specialist. A surgical decompression and arthrodhesis were indicated as a last resort. DS: Diagnosis - Discharge Diagnosis (1) S/P lumbar fusion Status: Acute DS: Medications - Discharge Medications Prescriptions: hydrocodone-acetaminophen 1 tab PO Q4H PRN 3 Days tab PRN Reason: Pain Scale 1 To 5 DS: Summary Hospital Course: Mr. Mathis is a 68 year old male who underwent L3-4, L4-L5 laminectomy, interbody arthrodesis using PEEK cage and autologous bone graft, L3-4, L4-L5 instrumental fixation using transpedicular screws and rods, L3-4, L4-L5 posterolateral fusion using autologous bone graft and demineralized bone matrix. Microsurgical dissection on 04/01/18. His surgery went well and the patient will be discharged to SNF in stable conditions. - Time Spent with Patient Total time spent providing and/or coordinating discharge services: Exam Vital signs: Vital Signs 04/03/18 16:00 04/03/18 16:02 04/03/18 16:03 Temperature 98.2 F Pulse Rate 93 H Respiratory Rate 16 16 18 Blood Pressure 143/70 H Pulse Oximetry 97 04/03/18 16:04 04/03/18 18:13 04/03/18 20:00 Temperature 99.3 F Pulse Rate 94 H Respiratory Rate 16 18 19 Blood Pressure 165/74 H Pulse Oximetry 04/04/18 00:00 04/04/18 00:19 04/04/18 04:00 Temperature 97.9 F 97.5 F L Pulse Rate 91 H 90 Respiratory Rate 18 19 20 Blood Pressure 156/71 H 182/82 H Pulse Oximetry 95 98 04/04/18 05:44 04/04/18 05:53 04/04/18 08:00 Temperature 98.1 F Pulse Rate 84 Respiratory Rate 19 19 18 Blood Pressure 189/83 H Pulse Oximetry 96 04/04/18 11:51 04/04/18 12:00 Temperature 100.0 F H Pulse Rate 105 H Respiratory Rate 16 17 Blood Pressure 127/65 Pulse Oximetry 95 Intake & Output 04/03/18 04/04/18 04/04/18 18:59 06:59 18:59 Intake Total 1999 Output Total 790 / 790 890 / 890 Balance 1210 / 1210 -890 / -890 Weight 87.2 kg Intake: IV 1999 NS Inj 1,000 ML @ 100 mls/hr IV 1999 .SIG .Q10H [place] Rx#:[id number] Output: Urine 700 / 700 800 / 800 Wound Drainage 90 / 90 # 1 Lower Back / 90 Results Procedures completed during hospitalization: Status post laminectomy L3-L4, L4-L5 by Dr. Bryant - Impressions ITS Impressions Lumbar Spine X-Ray 04/01/18 00:00 CONCLUSION: Appropriate postoperative appearance of the lower lumbar spine with bilateral transpedicular fixation from L3 through L5. Discharge Plan - Discharge Disposition Patient Disposition: [facility] Inpatient - Discharge Condition Condition: Stable - Discharge Order Discharge Orders: Discharge Order (Routine); Ordered 04/04/18 Ordered By: Lynn Leos - Physicians Team Primary Care Provider: Tyshawn Larkin Attending Provider: Chetan Bryant Other Providers: Yves Smith DO - Rxs /Orders / Referrals /Forms Prescriptions: New hydrocodone-acetaminophen 10-325 mg Tablet 1 tab PO Q4H PRN (Reason: Pain Scale 1 To 5) 3 Days RF: 0 Continue allopurinol 100 mg Tablet 200 mg PO DAILY amlodipine 5 mg Tablet 5 mg PO DAILY ascorbic acid (vitamin C) 500 mg Tablet 500 mg PO DAILY cholecalciferol (vitamin D3) 1,000 unit Tablet 1,000 unit PO DAILY gemfibrozil 600 mg Tablet 600 mg PO BIDAC guaifenesin 600 mg Tablet Extended Release 12hr 600 mg PO Q12H PRN (Reason: Cough) levothyroxine 100 mcg Capsule 100 mcg PO MOTUWETHFRSA levothyroxine 150 mcg Capsule 150 mcg PO [place] losartan 50 mg Tablet 50 mg PO DAILY montelukast 10 mg Tablet 10 mg PO QPM naproxen sodium 220 mg Tablet 220 mg PO Q12H PRN (Reason: Pain) Ambulatory Orders / Order Sets / DME: Walker With Front Wheels (1 each) (Routine) Location: Determined by Patient Ordered By: Lynn Leos Referrals: Tyshawn Larkin MD [Primary Care Provider] - See Instructions
[2018-04-04] MEDS: Montelukast 10 MG Tablet PO SCH (17:12)
--- NOTE | 2018-04-04 23:31 | US ---
EXAM DATE: 04/04/2018 11:25 PM EDT AGE/SEX: 68 years / Male INDICATIONS: Right lower extremity swelling. CLINICAL DATA: This is the patient's initial encounter. Patient reports that signs and symptoms have been present for 1 day and indicates a pain score of 0/10. MEDICAL/SURGICAL HISTORY: Anemia. Chronic obstructive pulmonary disease. Gastroesophageal ref lux disease. Arthritis. Asthma. Gout. Hypercholesterolemia. Hypertension. Hypothyroidism. Myocardial infarction. Osteoporosis. Prostate cancer. Radiation exposure. Renal disease. Scoliosis. Thyroid can cer. Sbtdb-Rvncjtfsx-Kwmvb syndrome. Thyroidectomy. Cholecystectomy. Total knee replacement, right . COMPARISON: No prior exams available for comparison. TECHNIQUE: Venous ultrasound of both lower extremities was performed from the inguinal ligament to t he proximal calf. Real-time, color Doppler and spectral tracing, compression and augmentation techni ques were used. FINDINGS: Normal compression of the deep venous system from the inguinal region to the proximal calf . No echogenic clot is seen. Normal response of the venous system to augmentation and respiration. CONCLUSION: The study is negative for lower extremity deep venous thrombosis. Electronically signed by: German Barbosa MD 04/04/2018 11:30 PM EDT
[2018-04-05] MEDS: Sod Chloride 0.9% Inj 1,000 ML IV.SIG SCH (01:28)
[2018-04-05] MEDS: Levothyroxine 100 MCG Tablet PO SCH ×2 (05:58→19:47)
[2018-04-05 06:13] LABS: Baso % (Auto) 0.3 % (0.0-2.0); Eos # (Auto) 0.8 th/mm3 (0.0-0.4); Eos % (Auto) 8.2 % (0.0-4.0); Hematocrit 28.3 % (39.0-51.0); Lymph # (Auto) 0.7 th/mm3 (1.0-4.8); Lymph % (Auto) 7.6 % (9.0-44.0); Mean Corpuscular HGB Conc 35.4 % (32.0-36.0); Mean Corpuscular Hemoglobin 31.4 pg (27.0-34.0); Mean Corpuscular Volume 88.5 fL (80.0-100.0); Mean Platelet Volume 9.6 fL (7.0-11.0); Mono # (Auto) 0.7 th/mm3 (0.0-0.9); Mono % (Auto) 7.6 % (0.0-8.0); Neut # (Auto) 7.3 th/mm3 (1.8-7.7); Neut % (Auto) 76.3 % (16.0-70.0); Platelet Count 171 th/mm3 (150-450); White Blood Count 9.5 th/mm3 (4.0-11.0)
[2018-04-05] MEDS: Senna/Docusate Sodium 8.6/50 MG Tablet PO SCH (09:37)
[2018-04-05] MEDS: Gemfibrozil 600 MG Tablet PO SCH ×2 (09:38→16:18)
[2018-04-05] MEDS: Allopurinol 100 MG Tablet PO SCH (09:38)
[2018-04-05] MEDS: amLODIPine 5 MG Tablet PO SCH (09:38)
--- NOTE | 2018-04-05 10:53 | P.PNIM ---
Subjective Interval history: Patient discharged today by neurosurgical attending. Patient is medically stable and cleared for discharge home today from a hospitalist standpoint. Physical Exam Vital signs: Vital Signs 04/04/18 11:51 04/04/18 12:00 04/04/18 16:00 Temperature 100.0 F H 99.5 F Pulse Rate 105 H 96 H Respiratory Rate 16 17 17 Blood Pressure 127/65 151/67 H Pulse Oximetry 95 95 04/04/18 16:36 04/04/18 20:00 04/04/18 20:44 Temperature 99.5 F Pulse Rate 101 H Respiratory Rate 16 18 19 Blood Pressure 167/78 H Pulse Oximetry 98 04/05/18 00:00 04/05/18 01:27 04/05/18 04:00 Temperature 97.7 F 97.8 F Pulse Rate 83 Respiratory Rate 18 19 18 Blood Pressure 179/81 H 158/70 H Pulse Oximetry 97 96 04/05/18 05:58 04/05/18 08:00 04/05/18 09:50 Temperature 99.1 F Pulse Rate 92 H Respiratory Rate 18 18 16 Blood Pressure 168/77 H Pulse Oximetry 99 Intake & Output 04/04/18 04/05/18 04/05/18 18:59 06:59 18:59 Intake Total 1000 / 1000 1000 / 1000 Output Total 740 / 740 1175 / 1175 Balance 260 / 260 -175 / -175 Weight 88.9 kg Intake: IV 1000 / 1000 1000 / 1000 NS Inj 1,000 ML @ 100 mls/hr IV 1000 / 1000 1000 / 1000 .SIG .Q10H [place] Rx#:[id number] Output: Urine 700 / 700 1175 / 1175 Wound Drainage 40 / 40 # 1 Lower Back 40 / 40 - Urinary Catheter Management Indwelling Urethral Catheter Cath placed during this visit: yes, but has since been removed by the nurse Reason for continuing: Continue criteria not met Insertion date: 04/01/18 Insertion time: 09:20 Removal date: 04/02/18 Removal time: 13:00 Results - Labs CBC & Chem 7: 04/05/18 05:24 04/03/18 08:48 Laboratory Results - last 24 hr 04/05/18 05:24 WBC 9.5 RBC 3.20 L Hgb 10.0 L Hct 28.3 L MCV 88.5 MCH 31.4 MCHC 35.4 RDW 14.0 Plt Count 171 MPV 9.6 Neut % (Auto) 76.3 H Lymph % (Auto) 7.6 L [place] % (Auto) 7.6 Eos % (Auto) 8.2 H Baso % (Auto) 0.3 Neut # (Auto) 7.3 Lymph # (Auto) 0.7 L [place] # (Auto) 0.7 Eos # (Auto) 0.8 H Baso # (Auto) 0.0 WBC Differential . Differential Comment Auto diff final - Imaging Impressions Venous Doppler Study 04/04/18 00:00 CONCLUSION: The study is negative for lower extremity deep venous thrombosis. - Procedures Status post laminectomy L3-L4, L4-L5 by Dr. Bryant Assessment and Plan - Assessment (1) S/P laminectomy Code(s): Z98.890 - Other specified postprocedural states Status: Acute - Plan Cleared by neurosurgery for discharge. Hospitalist clear for discharge today.
[2018-04-05] MEDS ORDERED: Magnesium Citrate Liq 300 ML Bottle PO ONE (14:27)
[2018-04-05] MEDS ORDERED: Morphine Inj 4 MG/ML Vial IV.PUSH PRN (14:29)
[2018-04-05] MEDS: Montelukast 10 MG Tablet PO SCH (20:04)
[2018-04-05] MEDS: oxyCODONE/Acetaminophen 10/325 Tablet PO PRN (20:44)
--- NOTE | 2018-04-05 23:52 | P.PNNS ---
Physical Exam Vital signs: Vital Signs 04/05/18 00:00 04/05/18 01:27 04/05/18 04:00 Temperature 97.7 F 97.8 F Pulse Rate 83 Respiratory Rate 18 19 18 Blood Pressure 179/81 H 158/70 H Pulse Oximetry 97 96 04/05/18 05:58 04/05/18 08:00 04/05/18 09:50 Temperature 99.1 F Pulse Rate 92 H Respiratory Rate 18 18 16 Blood Pressure 168/77 H Pulse Oximetry 99 04/05/18 12:00 04/05/18 16:00 04/05/18 20:00 Temperature 98 F 98.7 F 98.6 F Pulse Rate 88 92 H 94 H Respiratory Rate 20 18 18 Blood Pressure 173/75 H 161/73 H 181/84 H Pulse Oximetry 97 95 98 Intake & Output 04/05/18 04/05/18 04/06/18 06:59 18:59 06:59 Intake Total 1000 / 1000 Output Total 1175 / 1175 Balance -175 / -175 Weight 88.9 kg Intake: IV 1000 / 1000 NS Inj 1,000 ML @ 100 mls/hr IV 1000 / 1000 .SIG .Q10H [place] Rx#:[id number] Output: Urine 1175 / 1175 Other: # Voids 7 Date of Last Bowel Movement 04/05/18 # Bowel Movements 0 - Urinary Catheter Management Indwelling Urethral Catheter Cath placed during this visit: yes, but has since been removed by the nurse Reason for continuing: Continue criteria not met Insertion date: 04/01/18 Insertion time: 09:20 Removal date: 04/02/18 Removal time: 13:00 Assessment and Plan - Assessment (1) S/P lumbar fusion Code(s): Z98.1 - Arthrodesis status Status: Acute - Plan [employer] dc'ed, cont oral pain meds prn TLSO when out of bed, Physical Therapy Protonix for gi prophylaxis SCDs and TEDs for dvt prophylaxis appreciate medical assistance dc ANDRE drain today doppler right lower ext to assess for dvt case mgt for dc planning to rehab/SNF today
[2018-04-06] MEDS: oxyCODONE/Acetaminophen 10/325 Tablet PO PRN ×2 (02:02→09:08)
[2018-04-06] MEDS: Sod Chloride 0.9% Inj 1,000 ML IV.SIG SCH ×2 (05:24→05:25)
[2018-04-06] MEDS: Ascorbic Acid 500 MG Tablet PO SCH ×2 (05:24→09:02)
[2018-04-06] MEDS: Senna/Docusate Sodium 8.6/50 MG Tablet PO SCH ×2 (05:25→09:03)
[2018-04-06] MEDS ORDERED: Levothyroxine 150 MCG Tablet PO SCH (06:00)
[2018-04-06] MEDS: amLODIPine 5 MG Tablet PO SCH (09:02)
[2018-04-06] MEDS: Gemfibrozil 600 MG Tablet PO SCH (09:02)
[2018-04-06] MEDS: Allopurinol 100 MG Tablet PO SCH (09:03)
== END 2018-04-06 14:30 ==
LOC: HSDC 06:39 → HSDI 14:57 → N05 17:16
PROVIDERS: ADMIT Physician Assistant Medical; ATTEND Neurological Surgery